=== PATIENT | female | born 1975 | race Caucasian/White ===

== ENCOUNTER 2016-12-16 11:37 | Day surgery (SDC) | payer MEDICAID, OTHER ==
[~2016-12-16] VITALS: Ht 157.5 cm; Wt 68.0 kg
[2016-12-16] VITALS (8 sets, daily range): BP systolic 90–118; BP diastolic 53–69; PULSE 54–60; RESP 12–20; Ht 157.5 cm; Wt 68.0 kg
[~2016-12-16 11:37] MED LIST: CLINDAMYCIN 600 MG/D5W (PMX) 50 ML IVPB ONE; SOD CHLORIDE 0.9% 1,000 ML IV ONE
[2016-12-16 13:11] LABS: BASOPHILS % 0.4 % (0.0-2.0); EOSINOPHILS # 0.1 10^3/ul (0.0-0.5); EOSINOPHILS % 1.6 % (0.0-7.0); HEMATOCRIT 37.6 % (37.0-47.0); HEMOGLOBIN 12.6 g/dl (12.0-16.0); LYMPHOCYTES # 1.9 10^3/ul (0.8-2.9); LYMPHOCYTES % 25.7 % (15.0-51.0); MEAN CORPUSCULAR HEMOGLOBIN 29.6 pg (29.0-33.0); MEAN CORPUSCULAR HGB CONC 33.5 g/dl (32.0-37.0); MEAN CORPUSCULAR VOLUME 88.5 fl (82.0-101.0); MEAN PLATELET VOLUME 11.2 fl (7.4-10.4); MONOCYTE # 0.6 10^3/ul (0.3-0.9); NEUTROPHIL # 4.7 10^3/ul (1.6-7.5); PLATELET COUNT 176 10^3/UL (140-415); RED BLOOD COUNT 4.25 10^6/ul (4.20-5.40); RED CELL DISTRIBUTION WIDTH 13.8 % (11.5-14.5); WHITE BLOOD COUNT 7.3 10^3/ul (4.8-10.8)
[2016-12-16 13:29] LABS: INR 0.92; PROTIME 12.4 Sec (12.2-14.2)
[2016-12-16 13:30] LABS: PARTIAL THROMBOPLASTIN TIME 29.4 Sec (25.0-35.0)
[2016-12-16 13:35] LABS: ALBUMIN 4.2 g/dl (3.3-4.9); ALBUMIN/GLOBULIN RATIO 1.35; BILIRUBIN,INDIRECT 0.8 mg/dl (0-1.1); BILIRUBIN,TOTAL 0.8 mg/dl (0.2-1.3); TOTAL PROTEIN 7.3 g/dl (6.1-8.1)
[2016-12-16 13:36] LABS: CALCIUM 8.9 mg/dl (8.4-10.2); CREATININE 0.67 mg/dl (0.44-1.00); POTASSIUM 4.3 mmol/L (3.5-5.1)
[2016-12-16] MEDS ORDERED: BUPIVACAINE 0.25% (MPF) 10 ML 10 ML VIAL ONE (14:57)
[2016-12-16] MEDS ORDERED: BUPIVACAINE 0.5% (SDV) 30 ML INJ ONE (14:57)
[2016-12-16] MEDS ORDERED: LIDOCAINE 2% (MDV) 20 ML INJ ONE (14:57)
[2016-12-16] MEDS ORDERED: PROPOFOL 20 ML ONE (15:01)
[2016-12-16] MEDS ORDERED: MIDAZOLAM 1 MG/ML 2 ML INJ ONE (15:02)
[2016-12-16] MEDS ORDERED: FENTAnyl 50 MCG/ML VIAL ONE (15:02)
[2016-12-16] MEDS ORDERED: CLINDAMYCIN 600 MG/D5W (PMX) 50 ML IVPB ONE (15:10)
[2016-12-16] MEDS ORDERED: HYDROCODONE/APAP (5/325) TAB PO ONE (15:30)
[2016-12-16] MEDS ORDERED: ONDANSETRON 4 MG INJ ONE (15:31)
--- NOTE | 2016-12-16 15:34 | OPR ---
Date/Time of Note Date/Time of Note DATE: 12/16/16 TIME: 15:31 Operative Report Procedure Date: Dec 16, 2016 Preoperative Diagnosis right anterior upper and lower arm masses Postoperative Diagnosis same Operation Performed 1. excision of right anterior upper arm mass 4 cm incision and 4 x 2 cm mass 2. excision of right anterior inferior arm mass 4 cm incision and 4 x 2 cm mass 3. localized adjacent tissue transfer with the use of skin flaps 4. therapeutic injection of subcutaneous marcaine Surgeon: Slick SWANSON Specimens right arm upper and lower arm masses Indications This is a 41-year-old female with right anterior superior and inferior arm masses. She required surgical excision. Risks alternatives benefits in personal discussed the patient. Patient's best understanding the operation. Procedure Description Patient is taken to the OR and prepped and draped in usual sterile fashion surgical timeout was performed IV antibiotics given. Local subcutaneous therapeutic anesthesia is used to infiltrate the right anterior superior and inferior masses. 15 blade is used to excise the right anterior superior mass block along with the skin in elliptical fashion. Dissection cautery was carried onto the mass was circumferentially excised. Due to the large tissue defect localized adjacent tissue transfer the skin flaps was performed. Closure is with multilayer closure with interrupted 3-0 Vicryl and skin yasmin. Dry dressings were applied. Attention is paid to the right anterior inferior arm mass. 15 blade is used to make an elliptical incision including the skin to make en bloc excision of the mass. Dissection cautery recurrence of mass and circumferentially excised. There is good hemostasis. Due to large tissue defect localized adjacent tissue transfer with these of skin flaps was performed with multilayer closure with interrupted 3-0 Vicryl and skin yasmin. Dressings were applied. Slick SWANSON Dec 16, 2016 15:34
== END 2016-12-16 17:04 | disposition home or self-care (01) ==
LOC: SDS 11:37
PROVIDERS: ATTEND Surgery
DX: D23.61 Other benign neoplasm of skin of right upper limb, including shoulder (principal)
CPT/HCPCS: 14020; 80053; 84703; 85025; 85610; 85730; 88307; J2250; J2405; J3010; Z7512; Z7610